=== PATIENT | male | born 1995 | race Hispanic/Latino ===

== ENCOUNTER 2021-08-22 18:36 | Emergency (ER) | payer SELFPAY ==
[2021-08-22 20:45] LABS: Basophils # (Auto) 0.1 K/mm3 (0.0-0.1); Basophils % (Auto) 0.9 % (0.0-1.8); Eosinophils # (Auto) 0.2 K/mm3 (0.0-0.4); Eosinophils % (Auto) 3.6 % (0.0-4.3); Hematocrit 39.9 % (35.5-45.6); Hemoglobin 13.7 gm/dl (11.8-15.2); Lymphocytes # (Auto) 2.9 K/mm3 (1.2-5.4); Lymphocytes % (Auto) 42.1 % (13.4-35.0); Mean Corpuscular HGB Conc 34 % (32-34); Mean Corpuscular Volume 86 fl (84-94); Monocytes # (Auto) 0.7 K/mm3 (0.0-0.8); Monocytes % (Auto) 9.6 % (0.0-7.3); Platelet Count 284 K/mm3 (140-440); Red Blood Count 4.62 M/mm3 (3.65-5.03); Red Cell Distribution Width 13.4 % (13.2-15.2)
[2021-08-22 21:01] LABS: Alanine Aminotransferase 31 units/L (7-56); Albumin 4.3 g/dL (3.9-5); Blood Urea Nitrogen 9 mg/dL (9-20); Calcium 10.3 mg/dL (8.4-10.2); Hemolysis Index 5
[2021-08-22 21:11] LABS: BUN/Creatinine Ratio 13
[2021-08-22 21:51] LABS: Bilirubin,Urine Negative (Negative); Color,Urine Colorless (Yellow)
[2021-08-22 21:52] LABS: Blood,Urine Negative (Negative); PH,Urine 8.5 (5.0-7.0); Protein,Urine <15 mg/dL mg/dL (Negative)
[2021-08-22 22:04] LABS: RBC,Urine < 1.0 /HPF (0.0-6.0); WBC,Urine < 1.0 /HPF (0.0-6.0)
[2021-08-23] MEDS ORDERED: FAMOTIDINE 20 MG/2 ML INJ IV ONE (00:10)
[2021-08-23] MEDS ORDERED: METOCLOPRAMIDE 10 MG/2 ML INJ IV ONE (00:10)
[2021-08-23] MEDS ORDERED: diphenhydrAMINE 50 MG/ML VIAL IV ONE (00:10)
[2021-08-23] MEDS ORDERED: SODIUM CHLORIDE 0.9% 1000 ML 1,000 ML IV ONE (00:10)
--- NOTE | 2021-08-23 00:42 | XRay Report ---
XR chest routine 2V INDICATION / CLINICAL INFORMATION: CHEST WALL PAIN. COMPARISON: None available. FINDINGS: SUPPORT DEVICES: None. HEART /PULMONARY VASCULATURE: No significant abnormality. LUNGS / PLEURA: No significant pulmonary or pleural abnormality. No pneumothorax. ADDITIONAL FINDINGS: No significant additional findings. IMPRESSION: 1. No acute findings. Signer Name: Anthony Pierson MD Signed: 08/23/2021 12:37 AM Workstation Name: [id number]
--- NOTE | 2021-08-23 02:45 | Emergency Department Report ---
ED Abdominal Pain HPI - General Chief Complaint: Abdominal Pain Stated Complaint: HERNIA Source: patient Mode of arrival: Ambulatory Limitations: No Limitations - History of Present Illness Initial Comments: Patient is a 26-year-old male with a history of type 1 diabetes and GERD who presents to the ED with complaint of persistent nausea and vomiting, persistent hiccups and epigastric pain that radiates to the substernal area with a burning sensation intermittently for the last 1 week. Patient states that the symptoms have been persistent and especially worse in the last 2 days. Patient states that over 1 week ago he was admitted for 2 days at a [facility] due to hypoglycemia from poorly controlled type 1 diabetes. Patient states that the symptoms worsened after being discharged from the hospital although he admits that he does not take any medication for GERD. Patient denies dizziness, syncope, chest pain or shortness of breath, fever, chills, cough, diarrhea, constipation, dysuria, urinary frequency and urgency, sore throat, headache, lightheadedness or dizziness. MD Complaint: abdominal pain (epigastric pain), other (nausea and vomiting) -: Gradual, week(s) (1) Location: epigastric Radiation: epigastric, chest (substernal) Migration to: no migration Severity: moderate Severity scale (0 -10): 5 Quality: aching, sharp Consistency: intermittent Improves With: nothing Worsens With: vomiting Associated Symptoms: denies other symptoms, nausea, vomiting, anorexia. denies: diarrhea, fever, chills, constipation, hematemesis, hematochezia, melena, hematuria Treatments Prior to Arrival: antacids - Related Data Previous Rx's Medication Instructions Recorded Last Taken Type Dicyclomine [Bentyl] 20 mg PO Q6H PRN #30 tablet 08/23/21 Unknown Rx Famotidine [Pepcid] 20 mg PO BID #60 tablet 08/23/21 Unknown Rx Omeprazole 40 mg PO DAILY #60 cap 08/23/21 Unknown Rx Ondansetron [Zofran Odt] 4 mg PO Q8HR PRN #20 tab.rapdis 08/23/21 Unknown Rx Allergies Allergy/AdvReac Type Severity Reaction Status Date / Time adhesive AdvReac Rash Verified 08/22/21 19:48 ED Review of Systems ROS: Stated complaint: HERNIA Other details as noted in HPI Constitutional: denies: chills, fever Eyes: denies: eye pain, eye discharge, vision change ENT: denies: ear pain, throat pain Respiratory: denies: cough, shortness of breath, wheezing Cardiovascular: denies: chest pain, palpitations Endocrine: no symptoms reported Gastrointestinal: abdominal pain (Epigastric pain), nausea, vomiting. denies: diarrhea, constipation, hematemesis, melena, hematochezia Genitourinary: denies: urgency, dysuria Musculoskeletal: denies: back pain, joint swelling, arthralgia Skin: denies: rash, lesions Neurological: denies: headache, weakness, paresthesias Psychiatric: denies: anxiety, depression Hematological/Lymphatic: denies: easy bleeding, easy bruising ED Past Medical Hx - Past Medical History Hx Diabetes: Yes (Type 1 diabetes) - Medications Home Medications: Home Medications Medication Instructions Recorded Confirmed Last Taken Type Dicyclomine [Bentyl] 20 mg PO Q6H PRN #30 tablet 08/23/21 Unknown Rx Famotidine [Pepcid] 20 mg PO BID #60 tablet 08/23/21 Unknown Rx Omeprazole 40 mg PO DAILY #60 cap 08/23/21 Unknown Rx Ondansetron [Zofran Odt] 4 mg PO Q8HR PRN #20 tab.rapdis 08/23/21 Unknown Rx ED Physical Exam - General Limitations: No Limitations General appearance: alert, in no apparent distress - Head Head exam: Present: atraumatic, normocephalic, normal inspection - Eye Eye exam: Present: normal appearance, PERRL, EOMI Pupils: Present: normal accommodation - ENT ENT exam: Present: normal exam, normal orophraynx, mucous membranes moist, TM's normal bilaterally, normal external ear exam - Neck Neck exam: Present: normal inspection, full ROM. Absent: tenderness - Respiratory Respiratory exam: Present: normal lung sounds bilaterally. Absent: respiratory distress, wheezes, rhonchi, stridor, chest wall tenderness, accessory muscle use, decreased breath sounds, prolonged expiratory - Cardiovascular Cardiovascular Exam: Present: regular rate, normal rhythm, normal heart sounds. Absent: systolic murmur, diastolic murmur, rubs, gallop - GI/Abdominal GI/Abdominal exam: Present: soft, normal bowel sounds. Absent: tenderness, guarding, rebound, hyperactive bowel sounds, hypoactive bowel sounds, organomegaly, mass - Extremities Exam Extremities exam: Present: normal inspection, full ROM, normal capillary refill. Absent: tenderness - Back Exam Back exam: Present: normal inspection, full ROM. Absent: tenderness, CVA tenderness (R), CVA tenderness (L), muscle spasm, paraspinal tenderness, vertebral tenderness - Neurological Exam Neurological exam: Present: alert, oriented X3, CN II-XII intact, normal gait, reflexes normal - Psychiatric Psychiatric exam: Present: normal affect, normal mood - Skin Skin exam: Present: warm, dry, intact, normal color. Absent: rash ED Course Vital Signs 08/22/21 19:30 Temperature 98.9 F Pulse Rate 96 H Respiratory 18 Rate Blood Pressure 132/91 O2 Sat by Pulse 99 Oximetry ED Medical Decision Making - Lab Data Result diagrams: 08/22/21 20:24 08/22/21 20:24 - Radiology Data [facility] [address] [place] [address] XRay Report Signed Patient: EPIFANIO GIRALDO MR#: [id number] : 1995 Acct:[id number] Age/Sex: 26 / M ADM Date: 08/22/21 Loc: ED Attending Dr: Ordering Physician: NAVI MOSHER Date of Service: 08/23/21 Procedure(s): XR chest routine 2V Accession Number(s): [id number] cc: NAVI MOSHER Fluoro Time In Minutes: XR chest routine 2V INDICATION / CLINICAL INFORMATION: CHEST WALL PAIN. COMPARISON: None available. FINDINGS: SUPPORT DEVICES: None. HEART /PULMONARY VASCULATURE: No significant abnormality. LUNGS / PLEURA: No significant pulmonary or pleural abnormality. No pneumothorax. ADDITIONAL FINDINGS: No significant additional findings. IMPRESSION: 1. No acute findings. Signer Name: Ino Pierson MD Signed: 08/23/2021 12:37 AM Workstation Name: [id number] Transcribed By: YONATAN Dictated By: INO PIERSON MD Electronically Authenticated By: INO PIERSON MD Signed Date/Time: 08/23/2136 DD/ TD/TT: - Medical Decision Making This is a 26-year-old male with a history of type 1 diabetes and GERD who presents to the ED with complaint of persistent nausea and vomiting, persistent hiccups and epigastric pain that radiates to the substernal area with a burning sensation intermittently for the last 1 week. Patient states that the symptoms have been persistent and especially worse in the last 2 days. Patient states that over 1 week ago he was admitted for 2 days at a [facility] due to hypoglycemia from poorly controlled type 1 diabetes. Patient states that the symptoms worsened after being discharged from the hospital although he admits that he does not take any medication for GERD. In the ED, patient is alert and oriented x3 and is not in any distress. Lab test results were reviewed and are all nonactionable. Patient was treated for nausea and vom iting, also given antacids and normal saline 1 L IV bolus x1. Chest x-ray showed no acute cardiopulmonary abnormalities or pneumonitis. On reevaluation, patient symptoms well controlled at this time and patient will discharge home on medications for nausea and vomiting as well as antacids and advised to follow-up with his primary care physician in 5 to 7 days for reevaluation or return to the ED immediately if symptoms get worse. - Differential Diagnosis GERD; dehydration; gastritis; hiatal hernia; viral gastroenteritis Critical care attestation.: If time is entered above; I have spent that time in minutes in the direct care of this critically ill patient, excluding procedure time. ED Disposition Clinical Impression: Acute epigastric pain, Nausea and vomiting in adult patient GERD (gastroesophageal reflux disease) Qualifiers: Esophagitis presence: esophagitis presence not specified Qualified Code(s): K21.9 - Gastro-esophageal reflux disease without esophagitis Acute gastritis without mention of hemorrhage Qualifiers: Gastritis type: unspecified gastritis Gastritis bleeding: presence of bleeding unspecified Qualified Code(s): K29.00 - Acute gastritis without bleeding Disposition: 01 HOME / SELF CARE / HOMELESS Is pt being admited?: No Does the pt Need Aspirin: No Condition: Stable Instructions: Gastritis, Adult, [id number], Heartburn, [id number], Abdominal Pain, Adult, [id number], Nausea and Vomiting, Adult, [id number]-[id number], Gastroesophageal Reflux Disease, Adult, [id number] Additional Instructions: All lab test results were reviewed and are all nonactionable. Chest x-ray showed no acute cardiopulmonary abnormalities or pneumonitis. Therefore take medications with food, drink plenty of fluids and follow-up with your primary care physician in 5 to 7 days for reevaluation. Return to the ED immediately if symptoms get worse. Prescriptions: Dicyclomine [Bentyl] 20 mg PO Q6H PRN #30 tablet PRN Reason: abdominal pain Omeprazole 40 mg PO DAILY #60 cap Famotidine [Pepcid] 20 mg PO BID #60 tablet Ondansetron [Zofran Odt] 4 mg PO Q8HR PRN #20 tab.rapdis PRN Reason: Nausea Referrals: RITA BESS MD [Staff Physician] - 7-10 days Time of Disposition: 02:48 Print Language: MALAY
[2021-08-23 03:22] VITALS: BP 136/87
== END 2021-08-23 06:07 | disposition home or self-care (01) ==
LOC: ED 18:36
DX: R11.2 Nausea with vomiting, unspecified (principal); R10.13 Epigastric pain; K21.9 Gastro-esophageal reflux disease without esophagitis; K29.21 Alcoholic gastritis with bleeding; E11.9 Type 2 diabetes mellitus without complications; Z91.09 Other allergy status, other than to drugs and biological substances; Z79.899 Other long term (current) drug therapy
CPT/HCPCS: 36415; 71046; 80053; 81001; 85025; 96361; 96374; 96375; 99284; J1200; J2765; J3490; J7030